=== PATIENT | female | born 1985 | race Caucasian/White ===

== ENCOUNTER → 2016-03-24 | Outpatient (CLI) | payer OTHER ==
[~2016-03-24] MED LIST: ALPR-411 PO; FRRS300 PO; PRENTAB26 PO
== END | disposition home or self-care (01) ==
LOC: C.LAB1850 16:35
PROVIDERS: ATTEND Obstetrics & Gynecology
DX: Z32.01 Encounter for pregnancy test, result positive (principal)

== ENCOUNTER 2016-04-15 05:12 | Day surgery (SDC) | payer OTHER ==
[2016-04-13 17:10] LABS: BASO % 0.3 %; BASO ABS # 0.02 K/uL (0-0.2); COMPLETE YES; EOS % 2.8 %; HEMATOCRIT 37.4 % (37-47); IG% 0.1 %; LYMPH % 37.9 %; LYMPH ABS # 2.94 K/uL (1.2-3.4); MEAN CORPUSCULAR HEMOGLOBIN 29.1 pg (25-34); MEAN CORPUSCULAR HGB CONC 34.2 g/dl (32-36); MEAN PLATELET VOLUME 10.6 fL (7.4-10.4); MONO % 6.8 %; NEUT % 52.1 %; PLATELET COUNT 170 K/uL (130-400); WHITE BLOOD COUNT 7.76 K/uL (4.8-10.8)
[~2016-04-15] VITALS: Ht 157.5 cm; Wt 55.3 kg
[~2016-04-15 05:12] MED LIST changes: -ALPR-411 PO
[2016-04-15 05:41] VITALS: BP 97/57; PULSE 88; TEMP 36.9; O2SAT 99; Ht 157.5 cm; Wt 55.3 kg
[2016-04-15] MEDS ORDERED: ALPR-411 PO (05:41)
[2016-04-15] MEDS ORDERED: LACTATED RINGER'S 1000ML 1,000 ML IV SCH (06:00)
[2016-04-15] MEDS ORDERED: DEXAMETHASONE SOD INJ 4 MG/ML VIAL ONE (06:45)
[2016-04-15] MEDS ORDERED: MIDAZOLAM HCL 1 MG/ML 2ML VIAL ONE ×2 (06:46→07:16)
[2016-04-15] MEDS ORDERED: KETOROLAC TROMETHAMINE 30 MG/ML VIAL ONE (06:46)
[2016-04-15] MEDS ORDERED: ONDANSETRON INJ 2 MG/ML 2 ML VIAL ONE (06:46)
[2016-04-15] MEDS ORDERED: PROPOFOL IV EMULSION 10 MG/ML 20 ML VIAL IV ONE (06:46)
[2016-04-15] MEDS ORDERED: LIDOCAINE HCL 2% 2 ML VIAL (20MG/ML) ONE (06:46)
[2016-04-15] MEDS ORDERED: FENTANYL CITRATE INJ 50 MCG/1 ML 2 ML VIAL ONE ×2 (06:46→07:23)
[2016-04-15] MEDS ORDERED: GLYCOPYRROLATE INJ 0.2 MG/ML VIAL ONE (06:48)
--- NOTE | 2016-04-15 07:07 | History & Physical Bridge Note ---
H&P Re-Evaluation Bridge Note: I have examined the patient, reviewed the History & Physical and in the interval since the performance of the History & Physical I have noted the following changes of clinical significance: Patient wishes to take products of conception home with her to have a [facility] burial. Informed consent discussed with her re: biohazard and the need to dispose of remains properly. I discussed with patient that I would recommend pathology review, to rule out a rare problem like molar or GTN - she understands, and would prefer to take products of conception home with her today. Will plan to perform bHCG quant in 1 week to be sure this has dropped.
[2016-04-15] MEDS ORDERED: METHERGINE IM ONE (07:41)
[2016-04-15] MEDS ORDERED: SODIUM CHLORIDE 0.9% 1000ML 1,000 ML IV SCH (07:51)
--- NOTE | 2016-04-15 07:51 | [facility] Post Operative Brief Note ---
Immediate Operative Summary Operative Date Apr 15, 2016. Pre-Operative Diagnosis Missed Post-Operative Diagnosis Missed Procedure(s) Performed Dilation and Evacuation Surgeon Rn Medical Surgical Surgeon(s) None Estimated Blood Loss 50ml Findings Small amount of products of conception. Specimens A. Productions of Conception Drains bladder drained prior to procedure Anesthesia general Complication(s) None Disposition Recovery Room / PACU
--- NOTE | 2016-04-15 07:54 | Discharge Instructions ---
Discharge Instructions Date of Service Apr 15, 2016. Visit Reason for Visit: Missed Discharge Discharge Diagnosis / Problem: missed Discharge Goals Goal(s): Therapeutic intervention Activity Recommendations Activity Limitations: per Instructions/Follow-up section Anesthesia . Post Anesthesia Instructions: If you have had General Anesthesia or IV Sedation: * Do not drive today. * Resume driving when surgeon permits. * Do not make important decisions or sign legal documents today. * Call surgeon for: 1. Temperature elevations greater than 101 degrees F. 2. Uncontrollable pain. 3. Excessive bleeding. 4. Persistent nausea and vomiting. 5. Medication intolerance (nausea, vomiting or rash). * For nausea and vomiting use only clear liquids such as: tea, soda, bouillon until nausea subsides, then gradually increase diet as tolerated. * If you have any concerns or questions, call your surgeon's office. If physician is unavailable and it is an emergency, call 911 or go to the nearest emergency room. . Instructions / Follow-Up Instructions / Follow-Up ACTIVITY RECOMMENDATIONS: * Avoid tampons, douching, hot tubs, pools, and intercourse until bleeding has stopped. * May shower as usual. * No strenuous activity for 24-48 hours. After 24-48 hours, you may do anything you feel like doing (driving and sports are okay). SPECIAL CARE INSTRUCTIONS: Special Diet: * Mild nausea may occur in the immediate post-operative period. * Take clear liquids such as tea, cola or bouillon until all nausea has subsided; you may then resume your normal diet. Special Care: * Light bleeding and vaginal spotting can last from a few days to 3-4 weeks. Call your doctor if bleeding becomes heavier than the heaviest part of your period. * Check your temperature twice a day for one week. If it goes above 100.4 degrees Fahrenheit (38.0 Celsius), notify your doctor. * Call your doctor's office for an appointment for 6 weeks after your surgery. FOLLOW-UP VISIT: Call your doctor's office for an appointment for 6 weeks after your surgery. Diet Recommendations Recommended Home Diet: resume previous diet Procedures Procedures Performed: Dilation and Evacuation Pending Studies Studies pending at discharge: no Medical Emergencies . Who to Call and When: Medical Emergencies: If at any time you feel your situation is an emergency, please call 911 immediately. . Non-Emergent Contact Non-Emergency issues call your: Primary Care Provider, [employer] Machine Tender . . "Provider Documentation" section prepared by Luna Plasencia.
[2016-04-15] MEDS ORDERED: METHYLERGONOVINE MALEATE 0.2 MG/ML AMP ONE (07:58)
[2016-04-15] MEDS ORDERED: NALOXONE HCL 0.4 MG/1 ML VIAL/CARP IV PRN (08:00)
[2016-04-15] MEDS ORDERED: FENTANYL CITRATE INJ 50 MCG/1 ML 2 ML VIAL IV PRN (08:00)
[2016-04-15] MEDS ORDERED: KETOROLAC TROMETHAMINE 30 MG/ML VIAL IV. PRN (08:00)
[2016-04-15] MEDS ORDERED: ONDANSETRON INJ 2 MG/ML 2 ML VIAL IV PRN ×2 (08:00)
[2016-04-15] MEDS ORDERED: ATROPINE SULFATE 0.1 MG/ML 5ML SYR IV PRN (08:00)
[2016-04-15] MEDS ORDERED: FLUMAZENIL 0.1 MG/1 ML 10 ML VIAL IV PRN (08:00)
[2016-04-15] MEDS ORDERED: EpHEDrine SULFATE INJ 50 MG/ML AMP IV PRN (08:00)
[2016-04-15] MEDS ORDERED: OXYCODONE/ACETAMINOPHEN 5-325 TAB PO PRN ×2 (08:00)
[2016-04-15] MEDS ORDERED: PROMETHAZINE HCL INJ 25 MG in SODIUM CHLORIDE 0.9% 50ML 50 ML IV PRN (08:00)
[2016-04-15] MEDS ORDERED: PROMETHAZINE HCL INJ 12.5 MG in SODIUM CHLORIDE 0.9% 50ML 50 ML IV PRN (08:00)
[2016-04-15] MEDS ORDERED: DOXYCYCLINE HYCLATE 100 MG CAP PO STA (08:14)
--- NOTE | 2016-04-15 08:26 | OPERATIVE REPORT ---
DATE OF OPERATION: 04/15/2016 PREOPERATIVE DIAGNOSIS: Missed . POSTOPERATIVE DIAGNOSIS: Same. PROCEDURE PERFORMED: Dilation and evacuation. SURGEON: Dr. Luna Plasencia. TOY CONSULTANT: None. ESTIMATED BLOOD LOSS: 50 mL. FINDINGS: Small amount of products of conception. SPECIMENS: Products of conception. DRAINS: Bladder drained prior to procedure. ANESTHESIA: General. COMPLICATIONS: None. DISPOSITION: Recovery room PACU stable and good condition. DESCRIPTION OF PROCEDURE: The patient was seen in the preoperative holding area where risks, benefits, alternatives were reviewed. She elected to proceed with surgery. Informed consent had been previously obtained in the office under no duress. She was then taken to the operating room where general anesthesia was introduced. She was prepared and draped in the usual sterile fashion and a timeout was called and confirmed. A weighted speculum was placed in the vagina. Cervix was visualized and the anterior lip was grasped with a single tooth tenaculum. The cervix was gently dilated to admit an 8 mm curved suction curette. The suction curettage was undertaken gently with a small amount of products of conception. A gentle pass with a sharp curette was undertaken and all of these products of conception were suctioned through the curette. All instruments were removed from the vagina. Excellent hemostasis was observed. One dose of Methergine was given by anesthesia to ensure excellent hemostasis. The patient was cleaned of all prep and awoken from anesthesia and taken to the postoperative recovery area in stable and good condition. I attest to the content of the Intraoperative Record and any orders documented therein. Any exceptions are noted below. [facility]MER
--- NOTE | 2016-04-15 08:36 | Anesthesiology Progress Note ---
Anesthesia Post Op Note Date & Time Apr 15, 2016 at 08:35 Vital Signs Pain Intensity: 0 Vital Signs Past 12 Hours Date Time Temp Pulse Resp B/P Pulse Ox O2 Delivery O2 Flow Rate FiO2 04/15/16 08:25 36.2 64 18 106/61 100 Room Air 04/15/16 08:15 76 20 108/59 100 Room Air 04/15/16 08:05 79 20 100/56 100 Mask 10 04/15/16 07:55 76 20 97/52 100 Mask 10 04/15/16 07:48 36.6 76 12 103/51 100 Mask 10 04/15/16 05:41 36.9 88 20 97/57 99 Room Air Notes Mental Status: alert / awake / arousable, participated in evaluation Pt Amnestic to Procedure: Yes Nausea / Vomiting: adequately controlled Pain: adequately controlled Airway Patency, RR, SpO2: stable & adequate BP & HR: stable & adequate Hydration State: stable & adequate Anesthetic Complications: no major complications apparent
[2016-04-15 08:40] VITALS: BP 100/62; PULSE 85; TEMP 36.5; O2SAT 100
[2016-04-15 09:09] VITALS: BP 124/74; PULSE 72; O2SAT 100
[2016-04-15 09:40] VITALS: BP 118/72; PULSE 66; TEMP 37; O2SAT 100
== END 2016-04-15 10:04 | disposition home or self-care (01) ==
LOC: C.ACU 05:12
PROVIDERS: ATTEND Obstetrics & Gynecology
DX: O02.1 Missed abortion (principal)

== ENCOUNTER 2018-11-23 00:48 | Inpatient (IN) ==
[2018-11-23] MEDS ORDERED: OXYTOCIN 30 UNITS/500 ML BAG IV PRN ×2 (01:07→04:48)
[2018-11-23] MEDS: LACTATED RINGER'S 1,000 ML IV PRN ×2 (01:16→02:21)
[2018-11-23 01:27] LABS: Hematocrit (blood only) 36.8 % (37-47); Hemoglobin 12.6 g/dL (12.0-16.0); Mean Corpuscular Hemoglobin 30.3 pg (25-34); Mean Corpuscular Hgb Conc 34.2 g/dL (32-36); Mean Corpuscular Volume 88.5 fL (80-100); Mean Platelet Volume 11.3 fL (7.4-10.4); Platelet Count 158 K/uL (130-400); RDW Coefficient of Variation 13.3 % (11.5-14.5); RDW Standard Deviation 43.1 fL (36.4-46.3); Red Blood Count 4.16 M/uL (4.2-5.4); White Blood Count 9.49 K/uL (4.8-10.8)
[2018-11-23] MEDS ORDERED: fentaNYL citrate 100 MCG/2 ML VIAL ONE (01:35)
[2018-11-23] MEDS ORDERED: BUPIVACAINE 0.25% 30 ML VIAL ONE (01:35)
[2018-11-23] MEDS ORDERED: ePHEDrine sulfate 50 MG/ML AMP ONE (01:35)
[2018-11-23] MEDS ORDERED: fentaNYL 2MCG/ML ROPIV 1.25MG/ML 100 ML BAG EPI ONE (01:36)
--- NOTE | 2018-11-23 01:58 | Anesthesiology Consultation ---
Date of Service November 23, 2018 Assessment & Plan Chart Review Chart Review: Patient NOT seen in Pre Admission Testing and Acceptable Risk for Labor Epidural Consults Requested none ASA ASA2 Proposed Anesthesia Anesthesia Type: Labor Epidural and CSE Risk / Benefits Reviewed With: PT / POA / Parent / Guardian, Accepts Plan and Informed Consent Obtained History Height/Weight Height: 5 ft Weight: 73.028 kg Allergies Allergy/AdvReac Type Severity Reaction Status Date / Time No Known Drug Allergies Allergy Unknown Verified 11/23/18 01:09 Medications Home Medications Medication Instructions Recorded Confirmed Last Taken PNV cmb#95-ferrous fumarate-FA 1 tab PO DAILY 11/23/18 11/23/18 Unknown [] docusate sodium [Colace] 100 mg PO DAILY 11/23/18 11/23/18 Unknown Active Medications Generic Name Dose Route Start Last Admin Trade Name Freq PRN Reason Stop Dose Admin Lactated Ringer's 1,000 mls @ 125 mls/hr 11/23/18 01:07 11/23/18 01:16 Lr IV 11/25/18 01:06 999 mls/hr .Q8H PRN Administration L&D Protocol Protocol NPO Date Last Intake of Fluids: 11/23/18 Time Last Intake of Fluids: 00:30 Date Last Intake of Solids: 11/22/18 Time Last Intake of Solids: 18:30 Past Medical History Medical History History of depression was taking xanax stopped with positive test History of migraine History of varicella Exercise / Class Metabolic Activity II 4-5 Yardwork/Stairs/Walk up hill Past Family History Family History Other Diabetes Past Surgical History Surgical History History of loop electrosurgical excision procedure (LEEP) 2008 S/P wisdom tooth extraction Past Anesthesia History No Hx of Anesthesia Complications and No Family Hx of Anesthesia Complications History of PONV No Hx of PONV and No Hx of Motion Sickness Social History Smoking Status: Never smoker Hx Alcohol Use: No Hx Substance Use: No Review of Systems no chest pain or sob Physical Exam Vital Signs Last Vital Signs Temp 36.6 C 11/23/18 01:13 Pulse 92 H 11/23/18 01:57 Resp 20 11/23/18 01:13 BP 143/89 H 11/23/18 01:00 Pulse Ox 98 11/23/18 01:57 ENMT Mouth: no TMJ abnormality Thyromental Distance: > or= 3.5 Finger Breadths Mallampati Class: II Neck normal visual inspection Respiratory normal respiratory effort Auscultation: lungs clear to auscultation bilaterally Cardiovascular Rate/Rhythm: regular rate and regular rhythm Musculoskeletal Spine: normal cervical ROM Neurologic moves all extremities Psychiatric Orientation: alert and oriented x 3 Testing Laboratory Results 11/23/18 01:16
--- NOTE | 2018-11-23 02:15 | History & Physical Report ---
Date of Service November 23, 2018 Assessment & Plan (1) Supervision of normal intrauterine in multigravida: (2) SROM (spontaneous rupture of membranes): pt has been admitted. fhts reassuring. labs. anesthesia here to place epidural. History of Present Illness Chief Complaint: regular ctx, srom Primary Care Provider: Parris Chang MD 33yo at 40+wks ega presents with cc as above. Noted regular ctx, came for labor evaluation and was 4cm and desired epidural. SROM clear fluid. Exam by nurse 8cm and decel noted, called to come see pt. Patient having painful ctx. pnc c/b 1. postdates pnl rh pos, ri, gbs neg obh: x 1 gynh: nl pap recently, prior LEEP, no stds pmh: neg psh: wisdom teeth, LEEP Allergies Allergy/AdvReac Type Severity Reaction Status Date / Time No Known Drug Allergies Allergy Unknown Verified 11/23/18 01:09 Home Medications Home Medications Medication Instructions Recorded Confirmed Type PNV cmb#95-ferrous fumarate-FA 1 tab PO DAILY 11/23/18 11/23/18 History [] docusate sodium [Colace] 100 mg PO DAILY 11/23/18 11/23/18 History Patient History Medical History History of depression was taking xanax stopped with positive test History of migraine History of varicella Surgical History History of loop electrosurgical excision procedure (LEEP) 2009 S/P wisdom tooth extraction Family History Other Diabetes Social History Preferred Language: Angolan Communication Ability: Effective Beliefs That Will Affect Care: None marital status: Single Current Living Situation: Significant Other Current Living Situation Comment: house with FOB and kids Other Information That Helps Us Care for You: No Feels Safe at Home: Yes Safety Concerns: Feels Safe At This Time Smoking Status: Never smoker Hx Alcohol Use: No Hx Substance Use: No Review of Systems no fever Physical Exam Constitutional: WD/WN, vitals as above Psychiatric: A+Ox3, euthymic affect Genitourinary: OB Exam Monitor Tracing: + external FHT monitor used (110 mod variability +scalp stim response), + external uterine monitor used (q2-3), + normal FHT variability and + variable decelerations after srom, renetta to 90s x 5-6min, pos change, o2 applied. sve 6/100/0 fhts improved to 110s with status as above Results & Data Vital Signs (Past 12 Hours) Vital Signs Temp Pulse Resp BP Pulse Ox 11/23/18 02:07 91 H 99 11/23/18 02:02 88 89 L 11/23/18 01:57 92 H 98 11/23/18 01:13 97.9 F 20 11/23/18 01:00 97.9 F 80 20 143/89 H Code Status & VTE Plan VTE Prophylaxis Plan VTE Prophylaxis will be ordered: No
[2018-11-23] MEDS ORDERED: fentaNYL 2MCG/ML ROPIV 1.25MG/ML 100 ML BAG EPI PRN (02:29)
[2018-11-23] MEDS ORDERED: ONDANSETRON INJ 2 MG/ML 2 ML VIAL IV PRN (02:29)
[2018-11-23] MEDS ORDERED: NALOXONE HCL 0.4 MG/1 ML VIAL/CARP IV PRN (02:29)
[2018-11-23] MEDS ORDERED: NALBUPHINE HCL INJ 10 MG/ML AMP IV PRN (02:29)
[2018-11-23] MEDS ORDERED: DiphenhydrAMINE HCL 50 MG/ML VIAL IV PRN (02:29)
[2018-11-23] MEDS ORDERED: ePHEDrine sulfate 50 MG/ML AMP IV PRN (02:29)
[2018-11-23] MEDS ORDERED: NALOXONE HCL 1 MG in SODIUM CHLORIDE 0.9% 1000ML 1,000 ML IV PRN (02:29)
[2018-11-23] MEDS ORDERED: ACETAMINOPHEN 325 MG TAB PO PRN (03:01)
[2018-11-23] MEDS ORDERED: ACETAMINOPHEN W/CODEINE #3 1 TAB PO PRN (03:01)
--- NOTE | 2018-11-23 03:04 | Anesthesia Procedure Note ---
Date of Service November 23, 2018 Anesthesia Post Epidural Note Vital Signs Vital Signs: Temp Pulse Resp BP Pulse Ox 36.5 C 100 H 20 167/72 H 93 11/23/18 02:15 11/23/18 02:59 11/23/18 02:15 11/23/18 02:54 11/23/18 02:59 Notes Mental Status: alert / awake / arousable Nausea / Vomiting: adequately controlled Pain: adequately controlled Airway Patency, RR, SpO2: stable & adequate BP & HR: stable & adequate Hydration State: stable & adequate Neuraxial Anesthesia: was administered and sensory block is resolving Anesthetic Complications: no major complications apparent and Pt Satisfied with anesthetic care Epidural: Removed without complications and With tip intact
--- NOTE | 2018-11-23 03:43 | Delivery Summary ---
Vaginal Delivery Summary Date of Service November 23, 2018 Went in to seen patient due to deceleration of heart rate to 70s. The terence ent was completely dilated and began 2nd stage. The heart tones showed deep variables and patient was readied for delivery. Within a few contractions she pushed effectively to deliver via a viable male infant Apgars 8 and 9 over intact perineum. Mouth and nose bulb suctioned at perineum and loose nuchal cord reduced. Shoulders and body delivered with ease. was vigorous and at . Cord clamped at 30 seconds of life and infant to maternal abdomen where the cord was then doubly clamped and cut. Placenta delivered spontaneously and intact, three-vessel cord. Hemostasis achieved with dilute pitocin and uterine massage and drainage of the bladder for approximately 200 cc under sterile conditions. Cervix and sulci intact. Left labia bridge of tissue noted from prior obstetric laceration. Patient desired revision. Scalpel used to open the area and reapproximated labia with interrupted sutures of 4-0 vicryl. S Two small vaginal lacerations at introitus and right side, reapproximated with single interrupted sutures of 4-0 vicryl. EBL 300 cc. Mother and baby stable recovery. [facility] Vaginal Delivery Charge Vaginal Delivery Codes: 57289 global code for the antepartum, delivery, and post-
[2018-11-23 03:45] LABS: Albumin Level 2.6 gm/dl (3.4-5.0); BUN Creatinine Ratio 9.8 (10-20); Calcium 8.3 mg/dl (8.5-10.1); Creatinine Clr Calc Pharmacy 109.2 ml/min; Est GFR (African American) 135.5; Est GFR (Non-African American) 116.9; Potassium 3.6 mmol/L (3.5-5.1)
[2018-11-23 03:48] LABS: Albumin Globulin Ratio 0.7 (0.9-2); Bilirubin,Total 0.3 mg/dl (0.2-1); Globulin 3.5 gm/dl (2.5-4.0); Total Protein 6.1 gm/dl (6.4-8.2)
[2018-11-23] MEDS ORDERED: BENZOCAINE 20% AER SPR 82.5 GM CAN EXT PRN (04:48)
[2018-11-23] MEDS ORDERED: DIPHTHERIA/TETANUS/PERTUSSIS 0.5 ML SYR/VIAL IM ONE (04:48)
[2018-11-23] MEDS ORDERED: HYDROCORTISONE ACETATE 25 MG SUPP PR PRN (04:48)
[2018-11-23] MEDS ORDERED: SUPERCREAM 0.870% 15 GM JAR EXT PRN (04:48)
[2018-11-23] MEDS ORDERED: OXYTOCIN 20 UNITS in LACTATED RINGER'S 1,000 ML IV SCH (04:48)
[2018-11-23] MEDS: DOCUSATE SODIUM 100 MG CAP PO SCH ×2 (08:59→20:51)
[2018-11-23] MEDS: IBUPROFEN 600 MG TAB PO PRN ×2 (08:59→19:22)
--- NOTE | 2018-11-24 06:08 | Obstetrical Progress Note ---
Date of Service November 24, 2018 Assessment & Plan (1) : 33 yo s/p VD @40w6d -PPD# 1 - GBS negative, Blood Type A+ - Feels well today. Eating well, voiding well, ambulating well. - Pain well controlled. - Routine care - After discharge will have [address] Ngo. Supervising Physician Co-Signing Physician Notes Patient seen and evaluated and agree with the above findings and plan. Stable for discharge pending Peds clearing baby Subjective Doing well this morning. Delivery was early the morning before and they would like to go home today if possible. Bleeding is less than a heavy period. is going well and pain is 2/10 and well controlled with Motrin. Review of Systems Review of Systems: Denies fever, chills, sweats Denies shortness of breath, difficulty breathing, chest pain, palpitations, chest pressure. Denies breast pain. Denies dysuria. Denies headache. Physical Exam Physical Exam: General: Alert, oriented. No acute distress. Cardiac: Regular rate and rhythm, no murmurs/rubs/gallops. Respiratory: Clear to auscultation anterior and posteriorly, no wheezes/rales/rhonchi. No increased work of breathing. Symmetrical chest rise. No respiratory distress. Abdomen: Soft, nontender, nondistended. Bowel sounds present. Uterus: Uterine fundus firm, palpable 1 cm below umbilicus. Lower Extremities: No lower extremity edema or swelling. No deep calf pain. Rai's negative bilaterally. Results & Data Vital Signs (Past 12 Hours) Vital Signs Temp Pulse Resp BP Pulse Ox 11/24/18 05:24 81 20 135/81 11/23/18 23:45 36.6 C 70 20 148/83 H 98 11/23/18 20:40 36.7 C 74 20 152/81 H PG Care Time/CCT Total # of Minutes Spent Total Time Spent with Patient: Total time spent is greater than 50% in coordination of care (as documented) at patient's floor/unit and/or counseling patient: Resident Activity Tracking Resident Involvement: Resident Care Provided Care Provided: OB Delivery
[2018-11-24] MEDS: DOCUSATE SODIUM 100 MG CAP PO SCH (08:11)
[2018-11-24] MEDS: IBUPROFEN 600 MG TAB PO PRN (08:19)
== END 2018-11-24 15:35 | disposition home or self-care (01) | DRG 807 ==
LOC: OPB 00:48 → 4S1 00:49 → 4S2 05:24